=== PATIENT | male | born 1955 | race Caucasian/White ===

== ENCOUNTER 2018-09-18 14:55 | Outpatient (CLI) | payer OTHER ==
[2018-09-18 16:24] LABS: Hemoglobin 12.6 g/dL (14.0-18.0); Mean Corpuscular HGB CONC 33.4 g/dL (32.0-36.0); Mean Corpuscular Hemoglobin 30.2 pg (27.0-31.0); Mean Corpuscular Volume 90.5 fL (78.0-98.0); Mean Platelet Volume 7.8 fL (7.4-10.4); Platelet Count 264 thou/uL (130-400); RBC Distribution Width 13.1 % (11.5-14.5); Red Blood Cell (RBC) Count 4.17 mill/uL (4.70-6.10); White Blood Cell (WBC) Count 6.5 thou/uL (4.8-10.8)
[2018-09-18 16:44] LABS: Anion Gap 12 mmol/L (10-20); BUN (Urea Nitrogen) 13 mg/dL (8.4-25.7); Calc. Creatinine Clearance 0 mL/min (70-130); Calcium 9.3 mg/dL (7.8-10.44); Carbon Dioxide 25 mmol/L (23-31); Chloride 107 mmol/L (98-107); Estimated GFR-MDRD 72; Glucose 107 mg/dL (80-115); Potassium 3.9 mmol/L (3.5-5.1); Sodium 140 mmol/L (136-145)
--- NOTE | 2018-09-19 22:03 | EKG ---
Test Reason : Blood Pressure : / mmHG Vent. Rate : 050 BPM Atrial Rate : 050 BPM P-R Int : 200 ms QRS Dur : 086 ms QT Int : 444 ms P-R-T Axes : 054 038 -04 degrees QTc Int : 404 ms Sinus bradycardia T wave abnormality, consider inferior ischemia Abnormal ECG When compared with ECG of 18-OCT-2016 15:44, No significant change was found Confirmed by Heidi BERRY ([id number]) on 09/19/2018 10:03:23 PM Referred By: SHONDA Confirmed By:Heidi BERRY
== END 2018-09-18 14:56 | disposition home or self-care (01) ==
LOC: LABBT 14:55
PROVIDERS: ATTEND Neurological Surgery
DX: Z01.818 Encounter for other preprocedural examination (principal); M47.12 Other spondylosis with myelopathy, cervical region
CPT/HCPCS: 80048; 85027; 93005; 93010

== ENCOUNTER 2018-09-19 05:52 | Inpatient (IN) | payer OTHER ==
[2018-09-18 16:19] VITALS: BMI 28.7
[2018-09-19] MEDS ORDERED: Sodium Chloride 0.9% 10 ML ONE (06:24)
[2018-09-19] MEDS ORDERED: CEFAZOLIN 2 GM/50 ML BAG ONE (06:59)
[2018-09-19] MEDS ORDERED: Fentanyl 100 MCG/2 ML VIAL ONE ×2 (07:11→08:50)
[2018-09-19] MEDS ORDERED: Ketorolac Tromethamine 30 MG/ML VIAL IVP PRN (07:11)
[2018-09-19] MEDS ORDERED: Ondansetron HCl/PF 4 MG/2 ML Vial IVP PRN (07:11)
[2018-09-19] MEDS ORDERED: Promethazine 25 MG TAB PO PRN (11:02)
[2018-09-19] MEDS ORDERED: traMADol HCl 50 MG TAB PO PRN ×2 (11:02)
[2018-09-19] MEDS ORDERED: diphenhydrAMINE 25 MG CAP PO PRN (11:02)
[2018-09-19] MEDS ORDERED: Mag-Al 1200 mg/1200 mg/30 ML UDCUP PO PRN (11:02)
[2018-09-19] MEDS ORDERED: diphenhydrAMINE 50 MG/ML VIAL IVP PRN (11:02)
[2018-09-19] MEDS ORDERED: Milk Of Magnesia 30 ML UDCUP PO PRN (11:02)
[2018-09-19] MEDS ORDERED: Morphine 4 MG/ML VIAL SLOW IVP PRN (11:02)
[2018-09-19] MEDS ORDERED: Promethazine HCl 12.5 MG SUPP PR PRN (11:02)
[2018-09-19] MEDS ORDERED: HYDROcodone/Acetaminophen 10/325 mg Tablet PO PRN ×2 (11:02)
[2018-09-19] MEDS ORDERED: tiZANidine HCl 4 MG TAB PO PRN (11:02)
[2018-09-19] MEDS ORDERED: Promethazine HCl 25 MG/ML VIAL IM PRN (11:02)
[2018-09-19] MEDS ORDERED: Ondansetron PF 4 MG/2 ML Vial IVP PRN (11:04)
[2018-09-19] MEDS ORDERED: PROVENTIL INHALER 6.7 G (200 INHALATIONS) INH PRN (11:13)
[2018-09-19] MEDS ORDERED: Benzonatate 100 MG CAP PO PRN (11:15)
[2018-09-19] MEDS ORDERED: SUMAtriptan Succinate 50 MG TAB PO PRN (11:17)
[2018-09-19] MEDS ORDERED: Morphine 2 MG/ML SYRINGE SLOW IVP PRN (11:39)
[2018-09-19] MEDS: Sodium Chloride 0.9% 1,000 ML IV SCH (12:45)
[2018-09-19] MEDS: Gabapentin 300 MG CAP PO SCH ×2 (14:59→21:26)
[2018-09-19] MEDS: CEFAZOLIN 2 GM/50 ML-DEXTROSE 2 GM in Premix Bag 1 BAG IVPB SCH ×2 (14:59→23:52)
[2018-09-19] MEDS ORDERED: Dexamethasone 20 MG/5 ML VIAL ONE (16:48)
[2018-09-19] MEDS ORDERED: ePHEDrine/0.9% NaCl/PF SYRINGE 50 mg/10 ml ONE (16:48)
[2018-09-19] MEDS ORDERED: Ketorolac Tromethamine 30 MG/ML VIAL ONE (16:48)
[2018-09-19] MEDS ORDERED: Ondansetron PF 4 MG/2 ML Vial ONE (16:48)
[2018-09-19] MEDS ORDERED: Lidocaine 1% PF 5 ML VIAL ONE (16:48)
[2018-09-19] MEDS ORDERED: Glycopyrrolate 0.2 MG/ML 5 ML SYRINGE ONE (16:48)
[2018-09-19] MEDS ORDERED: PROPOFOL 200 MG/20 ML VIAL ONE (16:48)
[2018-09-19] MEDS: Mometasone/Formoterol 120 PUFF INHALER INH SCH (18:16)
[2018-09-19] MEDS ORDERED: Rosuvastatin 10 MG TAB PO SCH (21:00)
[2018-09-19] MEDS: Montelukast Sodium 10 mg Tablet PO SCH ×2 (21:26→21:30)
[2018-09-20] MEDS: Sodium Chloride 0.9% 1,000 ML IV SCH (00:37)
[2018-09-20] MEDS: Mometasone/Formoterol 120 PUFF INHALER INH SCH (07:51)
[2018-09-20] MEDS: Gabapentin 300 MG CAP PO SCH (08:15)
[2018-09-20] MEDS: CEFAZOLIN 2 GM/50 ML-DEXTROSE 2 GM in Premix Bag 1 BAG IVPB SCH (08:18)
[2018-09-20] MEDS ORDERED: CINNAMON BARK PO SCH (09:00)
[2018-09-20] MEDS ORDERED: Ubidecarenone 50 MG CAP PO SCH (09:00)
[2018-09-20] MEDS ORDERED: Multivit, Therapeutic 1 TAB PO SCH (09:00)
[2018-09-20] MEDS ORDERED: Hydrochlorothiazide 25 MG TAB PO SCH (09:00)
[2018-09-20] MEDS ORDERED: Ferrous Sulfate 325 MG TAB PO SCH (09:00)
[2018-09-20] MEDS ORDERED: ALLERGY DROPS PO SCH (09:00)
[2018-09-20] MEDS ORDERED: ALPHA LIPOIC ACID PO SCH (09:00)
[2018-09-20] MEDS ORDERED: Loratadine 10 MG TAB PO SCH (09:00)
[2018-09-20] MEDS ORDERED: TUMERIC PO SCH (09:00)
[2018-09-20] MEDS ORDERED: Fish Oil 1,000 MG CAP PO SCH (09:00)
[2018-09-20] MEDS ORDERED: Fluticasone Propionate Nasal Spray 16 gm Bottle NASAL SCH (09:00)
[2018-09-20 11:48] VITALS: BP 148/74; TEMP 97.6
--- NOTE | 2018-09-21 06:03 | OP ---
DATE OF PROCEDURE: 09/19/2018 GRADER OPERATOR: Albin. PROCEDURES PERFORMED: Anterior cervical diskectomy, C3-4 and C4-5; interbody arthrodesis; intervertebral biomechanical device; local morselized autograft; demineralized bone matrix; anterior titanium instrumentation, C3-4 and C4-5. DESCRIPTION OF PROCEDURE: The patient was brought to the operating room and intubated. He was positioned supine and gel-filled donut. An incision was made in the precervical area and dissecting the sternocleidomastoid muscle, identified the anterior cervical spine, and level was confirmed by x-ray. We placed distraction across the disk spaces, and using the operative microscope and microdissection techniques, completely removed the intervertebral disk at C3-4 and C4-5 through the level of the dura. The bony endplates were then decorticated with . An appropriate sized intervertebral biomechanical PEEK device was brought into the field, filled with demineralized bone matrix and local morselized autograft, and tapped into place securely at C3-4 and C4-5. Next, the anterior plate was brought into the field and secured to C3, C4, and C5 using two 14 mm screws at each level. The wound was then extensively irrigated and immaculate hemostasis was secured, and the wound was closed in anatomical layers over drain. Job ID: [id number]
--- NOTE | 2018-09-21 07:51 | DIS ---
DATE OF ADMISSION: 09/19/2018 DATE OF DISCHARGE: 09/20/2018 HOSPITAL COURSE: The patient is a 62-year-old -[place] male, who underwent C3 to C5 anterior diskectomy and fusion for cervical stenosis. Following his surgery, he was transitioned to the Med/Surg floor, where his pain was well-controlled with p.o. medications. He is tolerating regular diet and voiding appropriate. He does have some dysphagia, but again he is tolerating p.o. without any difficulty. MOOK was placed intraoperatively and had 10 mL out overnight. This was removed on postoperative day #1. I have seen the patient at the bedside. He is awake, alert, in no acute distress. He has free active range of motion of all extremities. No focal motor weakness. No reflex asymmetry. His incision is dry and soft. MOOK drain has minimal output at this time. We will plan to remove MOOK drain and dismiss the patient to home. I have discussed home care precautions. He has been provided the scripts for Bentley and Zanaflex. Followup in 2 weeks with x-rays. Job ID: [id number]
== END 2018-09-20 12:07 | disposition home or self-care (01) | DRG 473 ==
LOC: SURG A 05:52 → UNDOADMIN 05:52 → SDC/OP 05:52 → SURG A 10:15 → EDSTATUS 16:00 → UNDODISIN 09-20 12:07
PROVIDERS: ADMIT Neurological Surgery; ATTEND Neurological Surgery
PROC: 0RB30ZZ Excision of Cervical Vertebral Disc, Open Approach (ICD-10-PCS; principal; 2018-09-19)
PROC: 0RG20A0 Fusion of 2 or more Cervical Vertebral Joints with Interbody Fusion Device, Anterior Approach, Anterior Column, Open Approach (ICD-10-PCS; 2018-09-19)
DX: M48.02 Spinal stenosis, cervical region (principal); R13.10 Dysphagia, unspecified
CPT/HCPCS: 76001; 80048; 85027; 90471; 90686; 93005; 93010; C1713; C1776; G0008; G8978-GP-CK; G8979-GP-CI; J1100; J1200; J1885; J2001; J2405; J2704; J3010; J3490